=== PATIENT | male | born 1995 | race Caucasian/White ===

== ENCOUNTER 2022-03-19 15:59 | Emergency (ER) | payer BC ==
[~2022-03-19] VITALS: Ht 170.2 cm; Wt 106.6 kg
[2022-03-19 16:11] VITALS: BP_SYST 133
--- NOTE | 2022-03-19 19:10 | NUR ---
MD AUGUSTIN IN TRIAGE FOR MSE
[2022-03-19 19:46] LABS: RED BLOOD CELL COUNT(AUTO) 4.29 MIL/uL (4.2-6.2); WHITE BLOOD COUNT (AUTO) 5.6 K/uL (4.8-10.8)
[2022-03-19 19:47] LABS: HEMATOCRIT 39.3 % (36-54); MEAN CORPUSCULAR VOLUME 92 fL (79.0-98.0); NEUTROPHILS % (AUTO) 93.8 % (40.0-70.0); PLATELET COUNT (AUTO) 370 K/uL (130-430); RED CELL DISTRIBUTION WIDTH 13.2 % (9.0-15.0)
[2022-03-19 19:48] LABS: BASOPHILS % (AUTO) 0.1 % (0.0-2.0); LYMPHOCYTES # (AUTO) 0.3 K/uL (1.0-5.5); LYMPHOCYTES % (AUTO) 5.3 % (20.5-51.5); MONOCYTES % (AUTO) 0.8 % (1.7-9.3); NEUTROPHILS # (AUTO) 5.2 K/uL (1.8-7.7)
[2022-03-19 20:47] LABS: CALCIUM 9.5 mg/dL (8.4-11.0); CREATININE 0.77 mg/dL (0.55-1.30)
[2022-03-19 20:53] LABS: ALBUMIN 3.7 g/dL (3.4-4.8); TOTAL BILIRUBIN 0.4 mg/dL (0.0-1.0)
--- NOTE | 2022-03-19 21:00 | NUR ---
PT HERE C/O HEADACHE ON AND OFF SINCE , PT SATTED THAT HE NEVER HAD POUNDING HEADA DEL FROM THE PAST. PT STATED HE IS BEEN NAUSEOUS, DENIES VOMITING, DENIES FEVER. DENIES DIZZINESS. PMH;DENIES PT AAOX4, NO SOB NOTED AND NOT IN ANY DISTRESS.
[2022-03-19] MEDS ORDERED: IBUP-1969 PO (21:43)
[2022-03-19 22:00] VITALS: BP_SYST 113
--- NOTE | 2022-03-19 22:04 | NUR ---
DC PT HOME AAOX4, NO SOB NOTED AND NOT IN ANY DISTRESS, DC INSTRUCTION AND PRESCRIPTION WERE GIVEN TO PATIENT AND HE VERBALIZED UNDERSTANDING
== END 2022-03-19 22:05 | disposition home or self-care (01) ==
LOC: SED 15:59
DX: S16.1XXA Strain of muscle, fascia and tendon at neck level, initial encounter (principal); R51.9 Headache, unspecified; Z79.899 Other long term (current) drug therapy; X50.0XXA Overexertion from strenuous movement or load, initial encounter; Y93.89 Activity, other specified; Y92.89 Other specified places as the place of occurrence of the external cause; Y99.8 Other external cause status
CPT/HCPCS: 36415; 70450-TC; 72125-TC; 76376; 80053; 85025; 99284